=== PATIENT | male | born 1985 | race Hispanic/Latino ===

== ENCOUNTER 2021-08-15 11:59 | Emergency (ER) | payer OTHER ==
[~2021-08-15] VITALS: Ht 167.6 cm; Wt 99.8 kg
[2021-08-15 12:40] LABS: BASOPHILS % (AUTO) 0.4 % (0.0-5.0); HEMATOCRIT 47.9 % (42-54); LYMPHOCYTES % (AUTO) 26.7 % (21.0-51.0); MEAN CORPUSCULAR HEMOGLOBIN 29.6 pg (27.0-33.0); MEAN CORPUSCULAR HGB CONC 34.4 g/dL (32.0-36.0); MONOCYTES % (AUTO) 9.5 % (3.0-13.0); NEUTROPHILS % (AUTO) 61.9 % (40.0-77.0); PLATELET COUNT (AUTO) 237 K/uL (130-400); RED BLOOD CELL COUNT(AUTO) 5.57 MIL/uL (4.50-6.20); WHITE BLOOD COUNT (AUTO) 10.8 K/uL (4.8-10.8)
[2021-08-15 12:51] VITALS: BP 95/55
[2021-08-15 13:00] LABS: ALBUMIN 3.8 g/dL (3.5-5.0); CREATININE 2.2 mg/dL (0.5-1.5); MAGNESIUM 2.2 mg/dL (1.80-2.40); POTASSIUM 3.5 mmol/L (3.5-5.1)
[2021-08-15] MEDS ORDERED: 0.9%NACL 1000ML 1,000 ML IV ONE ×2 (14:30→15:00)
== END 2021-08-15 17:42 | disposition home or self-care (01) ==
LOC: EDH 11:59
DX: R55 Syncope and collapse (principal); E86.0 Dehydration; N17.9 Acute kidney failure, unspecified
CPT/HCPCS: 36415; 71045; 80053; 82550; 83735; 84484; 85025; 93005; 96360; 96361; 99285; J7030 ×2